=== PATIENT | female | born 1935 | race Caucasian/White ===

== ENCOUNTER 2019-09-17 11:45 | Inpatient (IN) ==
[2019-09-17] MEDS ORDERED: DUONEB (A & A) INH ONE (12:12)
[2019-09-17] MEDS ORDERED: SOLU-MEDROL IV ONE (12:12)
[2019-09-17] MEDS ORDERED: ATROVENT NEB INH ONE (12:12)
[2019-09-17] MEDS ORDERED: ROCEPHIN 1 GM in NS 50 ML IV ONE (12:12)
[2019-09-17 12:56] LABS: AGAP 9; ALBUMIN 3.8 g/dL (3.5-5.0); ALKALINE PHOSPHATASE 123 U/L (32-104); BUN 23 mg/dL (8-22); CALCIUM 9.2 mg/dL (8.8-10.2); CHLORIDE 96 mmol/L (98-107); COSMO 286; CREATININE 0.5 mg/dL (0.5-0.9); ESTIMATED GFR > 60; GLUCOSE 110 mg/dL (70-104); GOT 19 U/L (10-30); GPT 7 U/L (10-36); POTASSIUM 4.8 mmol/L (3.5-5.1); SODIUM 141 mmol/L (136-145); TCO2 35 mmol/L (25-35); TOTAL PROTEIN 7.4 g/dL (6.3-8.3)
--- NOTE | 2019-09-17 12:57 | Diag Imaging Result Doc PS360 ---
EXAM: CHEST-PORTABLE 09/17/2019 HISTORY: cough TECHNIQUE: Erect AP portable at 1244 COMMENT: There is ill-defined opacity over the right lower lobe inferiorly. This was not the case on 12/21/2017. There may be some chronic opacities in the retrocardiac left lower lobe and around the aortic arch. There is apical pleural thickening bilaterally. IMPRESSION: Right lower lobe bronchopneumonia. Pulmonary and pleural fibrosis. Electronically signed by Rafael Wellington 09/17/2019 12:54 PM
[2019-09-17 12:59] LABS: BASO# 0.01 X1000 (0.0-0.2); BASO% 0.2 % (0.0-0.8); EOS# 0.06 X1000 (0.0-0.7); EOS% 0.9 % (0.0-10.0); HEMATOCRIT 48.9 % (37.0-47.0); HEMOGLOBIN 14.4 g/dL (12.0-16.0); IMM GRAN# 0.01 X1000 (0.0-0.04); IMM GRAN% 0.2 % (0.0-0.5); LYMPH# 0.83 X1000 (1.2-3.4); LYMPH% 12.5 % (20.5-51.1); MCH 29.6 PG (27-31); MCHC 29.4 g/dL (33-37); MCV 100.6 FL (81-99); MONO# 0.69 X1000 (0.11-0.59); MONO% 10.4 % (1.7-9.3); MPV 10.1 FL (7.4-10.4); NEUT# 5.06 X1000 (1.4-6.5); NEUT% 75.8 % (42.2-75.2); PLT 185 X1000 (130-400); RBC 4.86 XMIL (4.2-5.4); RDW 14.2 % (11.5-14.5); WBC 6.66 X1000 (4.8-10.8)
[2019-09-17 13:51] LABS: INR 0.98; PROTIME 13.5 Seconds (11.0-16.0)
[2019-09-17] MEDS ORDERED: NORCO-10 PO PRN (14:37)
[2019-09-17] MEDS ORDERED: DUONEB (A & A) INH PRN (14:38)
[2019-09-17] MEDS: DOXYCYCLINE 100 MG in NS 250 ML IV SCH (16:45)
[2019-09-17] MEDS ORDERED: FLEXERIL PO SCH (17:00)
--- NOTE | 2019-09-17 18:11 | PROVIDER DOCUMENTATION ---
This chart was entered by Lisa Mathis Scribe, acting as scribe for Veronica Burnett MD. HPI-Respiratory General - General Chief Complaint: Shortness of Breath Stated Complaint: SOB - SENT FROM WOUND CENTER Time Seen by Provider: 09/17/19 11:47 Source: patient, family (daughter) Allergies/Adverse Reactions: Patient Allergies Allergy/AdvReac Type Severity Reaction Status Date / Time No Known Allergies Allergy Verified 09/17/19 12:10 Home Medications: Home Medication List Medication Instructions Recorded Confirmed Last Taken Type Carvedilol [Coreg] 6.25 mg PO DAILY 08/22/14 09/17/19 06/12/19 07:30 History Famotidine 20 mg PO QHS 08/22/14 09/17/19 06/11/19 19:00 History Morphine E.r. [Ms Contin] 120 mg PO Q12HR 08/22/14 09/17/19 06/12/19 07:30 History Albuterol Sulfate [Proair Hfa] 2 - 3 puff IH Q6H PRN PRN 02/11/16 09/17/19 06/12/19 11:00 History Morphine E.r. [Ms Contin] 15 mg PO QAM 08/21/17 09/17/19 06/12/19 07:30 History Hydrocodone/Acetaminophen 1 tab PO Q4-6H PRN PRN 12/20/17 09/17/19 06/11/19 05:00 History [Hydrocodone-Acetamin 10-325 mg] Letrozole [Femara] 1 tab PO QAM 12/20/17 09/17/19 06/12/19 07:30 History Albuterol 2.5MG/Ipratrop 0.5MG 3 ml INH DAILY 02/13/19 09/17/19 06/11/19 09:00 History [Duoneb (A & A)] Cyanocobalamin (Vitamin B-12) 2,500 mcg PO DAILY 06/05/19 09/17/19 06/12/19 07:30 History [Vitamin B12] Cyclobenzaprine [Flexeril] 5 mg PO HS 06/05/19 09/17/19 06/12/19 07:30 History - History of Present Illness-Resp Nature of Presenting Problem: 83 yowf presents to the ed from wound center with c/o worsening sob. pt is on home O2 @ 2.5LPM and has hx of COPD and lung CA that has mets to bone and breast. pt on home O2 @ 2.5LPM and has chronic sob but has became worse this morning Quality of Pain: reports: none Severity in ED: reports: moderate (sob) Onset/Duration: reports: other (chronic but worsened this am) Timing: reports: still present, intermittent Exposure: reports: unknown cause Cough Quality/Degree: reports: mild, dry cough Episode Frequency: chronic episodes Current Respiratory Medication Therapy: Initiated see nurses note Modifying Factors: worse with: exertion, lying down Associated Symptoms: reports: cough, shortness of breath, wheezing. denies: chest pain/soreness, headache Similar Symptoms Previously?: Yes (COPD) Recently seen or treated by another doctor?: Yes (was seen at wound care this am ) Review of Systems - Adult - REVIEW OF SYSTEMS - ADULT Constitutional: reports: see HPI. denies: chills, fever (97.4) Eyes: reports: no symptoms reported Ears, Nose, Mouth & Throat: reports: no symptoms reported Cardiovascular: reports: see HPI, orthopnea. denies: chest pain, palpitations Respiratory: reports: see HPI, chronic cough, dyspnea on exertion, shortness of breath, wheezing Gastrointestinal: denies: abdominal pain, diarrhea, nausea, vomiting Genitourinary: reports: no symptoms reported Musculoskeletal: denies: back pain, neck pain Integumentary: reports: no symptoms reported Neurological: denies: dizziness/vertigo, headache/migraines Psychiatric: reports: no symptoms reported Endocrine: reports: no symptoms reported Hematologic/Lymphatic: reports: no symptoms reported Allergic/Immunologic: reports: no symptoms reported All Other Systems: Reviewed and Negative Past History - Adult - PAST MEDICAL HISTORY-ADULT Review of Records: reports: Old Records Reviewed, Nursing Assessment Review, Medications Reviewed, Social history reviewed & non-contributory. Major Childhood Illnesses: reports: denies history Cardiovascular: reports: HTN Respiratory: reports: asthma, cancer Gastrointestinal: reports: GERD Obstetrical/Gynecological: reports: denies history Genitourinary: reports: denies history Musculoskeletal: reports: cancer Neurological: reports: denies history Psychiatric: reports: denies history Endocrine/Immune: reports: Diabetes, immunosuppression Diabetes Type: Type 2 Other Conditions: reports: other cancer (breast) - PRIOR SURGERIES/PROCEDURES Surgical/Procedure History: reports: cholecystectomy, hysterectomy, orthopedic (extremity), joint replacement, breast, other (mastectomy) - IMMUNIZATION STATUS Childhood Immunizations: See Nurse Assessment Flu Vaccine: See Nurse Assessment - FAMILY HISTORY Family History: reviewed, not pertinent - SOCIAL HISTORY Smoking: cigarettes, less than 1 pack/day Provider spent 3-5 mins advising pt. on dangers of tobacco.: Discussed manners t o quit use, and f/u contacts for add'l counseling. Substance Use: denies Alcohol Use Frequency: never Living Situation: family Physical Exam-General - PHYSICAL EXAM-ADULT Initial Vital Signs Reviewed: Yes - CONSTITUTIONAL General Appearance: alert, mild distress, obese - EYES Eyes: PERRL/EOMI, pink conjunctivae - HEAD, EARS, NOSE, MOUTH & THROAT HENMT: moist mucous membranes - NECK Neck: non-tender, normal inspection - RESPIRATORY Respiratory: decreased breath sounds, crackles (left greater then right), wheezing (bilateral), prolonged expiration, other (mastectomy/low O2 sat 85% on 2.5LPM via NC) - CARDIOVASCULAR Cardiovascular: normal peripheral pulses, regular rate, rhythm - CHEST (BREASTS) Chest/Breast: deferred - GASTROINTESTINAL (ABDOMEN) Abdominal Exam: non tender, soft - GENITOURINARY Female Genitalia/Pelvic Exam: deferred Rectal Exam: deferred Hemoccult Exam: deferred - MUSCULOSKELETAL Back Exam: no CVA tenderness, no vertebral tenderness Extremity: normal range of motion, normal capillary refill, other (wound noted with bandage covering on RLE lateral) - SKIN Integumentary: normal color, normal turgor, warm/dry - NEUROLOGIC Neurologic: grossly normal - PSYCHIATRIC Psych/Mental Status: normal mood/affect, normal thought content, normal thought process, oriented x 3 Progress - PLAN OF CARE/RESULTS Progress/Plan/Lab Results: Vital Signs - 8 hr 09/17/19 11:47 09/17/19 12:25 09/17/19 13:01 Temperature 97.4 F L Pulse Rate 80 84 85 Respiratory Rate 20 20 24 Blood Pressure 160/97 O2 Sat by Pulse Oximetry 81 L 97 96 Laboratory Results - last 24 hr 09/17/19 09/17/19 09/17/19 12:15 12:20 12:20 WBC RBC Hgb Hct MCV MCH MCHC RDW Std Deviation Plt Count MPV Immature Gran % (Auto) Neut % (Auto) Lymph % (Auto) [place] % (Auto) Eos % (Auto) Baso % (Auto) Immature Gran # (Auto) Neut # (Auto) Lymph # (Auto) [place] # (Auto) Eos # (Auto) Baso # (Auto) PT 13.5 INR 0.98 PTT (Actin FS) 32.0 Sodium Potassium Chloride Carbon Dioxide Anion Gap BUN Creatinine Estimated GFR/1.73 m2 BUN/Creatinine Ratio Glucose Calculated Osmolality Calcium Total Bilirubin AST ALT Alkaline Phosphatase Creatine Kinase 46 Troponin T Toj-S-Zljfljbueed Pept Total Protein Albumin Globulin Albumin/Globulin Ratio Plasma Lactate 1.3 09/17/19 09/17/19 09/17/19 12:20 12:29 12:29 WBC 6.66 RBC 4.86 Hgb 14.4 Hct 48.9 H MCV 100.6 H MCH 29.6 MCHC 29.4 L RDW Std Deviation 14.2 Plt Count 185 MPV 10.1 Immature Gran % (Auto) 0.2 Neut % (Auto) 75.8 H Lymph % (Auto) 12.5 L [place] % (Auto) 10.4 H Eos % (Auto) 0.9 Baso % (Auto) 0.2 Immature Gran # (Auto) 0.01 Neut # (Auto) 5.06 Lymph # (Auto) 0.83 L [place] # (Auto) 0.69 H Eos # (Auto) 0.06 Baso # (Auto) 0.01 PT INR PTT (Actin FS) Sodium 141 Potassium 4.8 Chloride 96 L Carbon Dioxide 35 Anion Gap 9 BUN 23 H Creatinine 0.5 Estimated GFR/1.73 m2 > 60 BUN/Creatinine Ratio 46 Glucose 110 H Calculated Osmolality 286 Calcium 9.2 Total Bilirubin 0.40 AST 19 ALT 7 L Alkaline Phosphatase 123 H Creatine Kinase Troponin T < 0.010 Ujv-I-Rzocoyduhgu Pept Total Protein 7.4 Albumin 3.8 Globulin 4.0 Albumin/Globulin Ratio 1.0 Plasma Lactate 09/17/19 12:29 WBC RBC Hgb Hct MCV MCH MCHC RDW Std Deviation Plt Count MPV Immature Gran % (Auto) Neut % (Auto) Lymph % (Auto) [place] % (Auto) Eos % (Auto) Baso % (Auto) Immature Gran # (Auto) Neut # (Auto) Lymph # (Auto) [place] # (Auto) Eos # (Auto) Baso # (Auto) PT INR PTT (Actin FS) Sodium Potassium Chloride Carbon Dioxide Anion Gap BUN Creatinine Estimated GFR/1.73 m2 BUN/Creatinine Ratio Glucose Calculated Osmolality Calcium Total Bilirubin AST ALT Alkaline Phosphatase Creatine Kinase Troponin T Yww-K-Lymqauqrooq Pept 8168 H Total Protein Albumin Globulin Albumin/Globulin Ratio Plasma Lactate Orders Category Date Time Status Admit - [facility] Routine AdmDCTranf 09/17/19 14:36 Active Activity - Up with Assistance ORDERED Care 09/17/19 14:36 Active Apply Mechanical Device [QM] ORDERED Care 09/17/19 14:36 Active Cardiac Monitoring DIRECTED Care 09/17/19 13:24 Completed DVT/PE Risk Assess/Protocol [QM] ORDERED Care 09/17/19 14:36 Active Elevate Head of Bed DIRECTED Care 09/17/19 14:36 Active Encourage Fluids DIRECTED Care 09/17/19 14:36 Active Intake and Output-Strict Q 8-HR ASSESS Care 09/17/19 14:36 Active Notify MD of + Sepsis Screen NOW Care 09/17/19 13:24 Completed Notify Physician As Ordered Care 09/17/19 13:24 Active Nursing- Assist w/ IS as order ORDERED Care 09/17/19 14:37 Active Saline Loc NOW Care 09/17/19 12:12 Completed Turn, Cough and Deep Breathe Q2HR Care 09/17/19 14:36 Active Vital Signs Order Q 8-HR ASSESS Care 09/17/19 14:36 Active Z-Document. for Tele Applied ORDERED Care 09/17/19 14:37 Active Regular Diet Diet 09/17/19 14:37 Active CHEST-PORTABLE [RAD] Stat Exams 09/17/19 12:12 Completed BLOOD CULTURE [BLDCUL] Stat Lab 09/17/19 12:15 Results CBC WITH DIFF [HEME] Stat Lab 09/17/19 12:29 Completed CK PROFILE [SP CHEM] Stat Lab 09/17/19 12:20 Completed COMPREHENSIVE METABOLIC PANEL [CHEM] Stat Lab 09/17/19 12:29 Completed LACTATE, PLASMA [CHEM] Lab 09/17/19 12:15 Completed LACTATE, PLASMA [CHEM] Lab 09/17/19 16:40 Completed LACTATE, PLASMA [CHEM] Lab 09/17/19 18:15 Ordered PRO B-NATRIURETIC PEPTIDE Stat Lab 09/17/19 12:29 Completed PROTIME WITH INR [COAG] Stat Lab 09/17/19 12:20 Completed PTT [COAG] Stat Lab 09/17/19 12:20 Completed SPUTUM CULTURE WITH GRAM STAIN [RM] Urgent Lab 09/17/19 12:13 Uncollected TROPONIN T Stat Lab 09/17/19 12:20 Completed Albuterol 2.5MG/Ipratrop 0.5MG [Duoneb (A & A)] Med 09/17/19 12:12 Discon tinued 3 ml INH NOW ONE Albuterol 2.5MG/Ipratrop 0.5MG [Duoneb (A & A)] Med 09/17/19 14:38 Active 3 ml INH Q2H PRN PRN Carvedilol [Coreg] Med 09/18/19 09:00 Active 6.25 mg PO DAILY CefTRIAXONE [Rocephin] 1 gm Med 09/17/19 12:12 Discontinued 0.9% Sodium Chloride Inj [Ns] 50 ml IV NOW CefTRIAXONE [Rocephin] 1 gm Med 09/18/19 12:00 Active 0.9% Sodium Chloride Inj [Ns] 50 ml IV Q24H Cyanocobalamin S.l. [Vitamin B-12] Med 09/18/19 09:00 Active 2,500 microgm PO DAILY Cyclobenzaprine [Flexeril] Med 09/17/19 17:00 Discontinued 5 mg PO TID Doxycycline 100 mg Med 09/17/19 14:45 Active 0.9% Sodium Chloride Inj [Ns] 250 ml IV Q12H Famotidine [Pepcid] Med 09/17/19 21:00 Active 20 mg PO QHS Hydrocodone/APAP 10 mg/325 mg [[place]-10] Med 09/17/19 14:37 Active 1 each PO Q4-6H PRN PRN Ipratropium Calvin Neb [Atrovent Neb] Med 09/17/19 12:12 Discontinued 0.5 mg INH NOW ONE Methylprednisolone Sod Succ [Solu-Medrol] Med 09/17/19 12:12 Discontinued 125 mg IV NOW ONE Morphine E.r. [Ms Contin] Med 09/17/19 21:00 Active 120 mg PO Q12HR Morphine E.r. [Ms Contin] Med 09/18/19 09:00 Active 15 mg PO QAM Aerosol Treatments Routine Oth 09/17/19 12:13 Completed Aerosol Treatments Routine Oth 09/17/19 14:38 Completed Aerosol Treatments Stat Oth 09/17/19 12:13 Completed Aerosol Treatments Stat Oth 09/17/19 14:38 Completed Incentive Spirometer Routine Oth 09/17/19 14:36 Completed Oxygen Device Routine Oth 09/17/19 14:36 Completed Oxygen Device Stat Ot 09/17/19 13:24 Active Pulse Oximetry Routine Oth 09/17/19 14:36 Active Pulse Oximetry Stat Ot 09/17/19 12:12 Active Telemetry [OM.EQ] Routine Oth 09/17/19 14:36 Active Transfer/Admit Order [TRANSFER] Routine Transfer 09/17/19 14:39 Completed Result Diagrams: 09/17/19 12:29 09/17/19 12:29 - REASSESSMENT Reassessment #1 Time Reassessed: 12:22 Status: unchanged (dr burnett at bedside speaking with pt and daughter about POC) Reassessment #2 Time Reassessed: 13:13 Status: unchanged (dr brewster at bedside) - XRAY 1 XRAY: Bilateral XRAY Study: Chest Impression: See EMR Report (EXAM: CHEST-PORTABLE 09/17/2019 HISTORY: cough TECHNIQUE: Erect AP portable at 1244 COMMENT: There is ill-defined opacity over the right lower lobe inferiorly. This was not the case on 12/21/2017. There may be some chronic opacities in the retrocardiac left lower lobe and around the aortic arch. There is apical pleural thickening bilaterally. IMPRESSION: Right lower lobe bronchopneumonia. Pulmonary and pleural fibrosis. Electronically signed by Rafael Wellington 09/17/2019 12:54 PM 09/17/19 1254 Interpreting Physician: Rafael Wellington MD Dictated Date/Time: 09/17/19 1253 cc: Veronica Burnett MD; Wilfredo Alvarez MD) - CONSULTS/PCP/HOSPITALIST Notification #1 *Consult/PCP/Hospitalist*: hospitalist dr brewster Time Discussed: 13:14 (dr brewster is at bedside) Reason/Comments: PNA Consult Disposition: Admit Departure - Departure Date of Disposition Decision: 09/17/19 Time of Disposition Decision: 13:13 DIAGNOSIS: COPD exacerbation, Tobacco use disorder PNA (pneumonia) Qualifiers: Pneumonia type: due to unspecified organism Laterality: unspecified laterality Lung location: unspecified part of lung Qualified Code(s): J18.9 - Pneumonia, unspecified organism Disposition: ADMITTED INPATIENT 09 Certified Medical Emergency: Emergent Condition: Good - Critical Care Note This patient required my direct & personal management of CC.: Yes Total Time (mins): 38 Critical Care Statement: This patient required my direct personal management to treat or rule out processes, the absence of which, could potentiallly result in sudden, clinically significant life or limb threatening deterioration. Attestation - Physician/ ANSELMO Attestation Patient care was provided by Advanced Practice Provider:: No The physician spent face to face time with patient:: Yes Advanced Practice Provider documentation review:: Supervising physician onsite and consulted in the evaluation and care of this patient. The physician did have a face to face encounter with the patient. This chart was documented by the indicated scribe, (Lias Mathis Scribe) and accurately reflects the services I performed and decisions made by me, Veronica Burnett MD, as attested by the provider's signature.
[2019-09-17] MEDS: DUONEB (A & A) INH SCH ×2 (19:46→23:05)
[2019-09-17] MEDS: FLEXERIL PO SCH (20:31)
[2019-09-17] MEDS: SOLU-MEDROL IV SCH (20:31)
[2019-09-17] MEDS: MS CONTIN PO SCH (20:32)
[2019-09-17] MEDS: PEPCID PO SCH (20:32)
--- NOTE | 2019-09-17 23:27 | HISTORY AND PHYSICAL ---
PRIMARY CARE PHYSICIAN: Dr. Wilfredo Alvarez. CHIEF COMPLAINT: Shortness of breath, low O2 saturations. HISTORY OF PRESENT ILLNESS: This is an 83-year-old female with a history of breast cancer wit bony metastases, lung cancer who presents to the emergency room from the [facility] complaining of shortness of breath that has been present for about 2 weeks. The patient states that about 2 or 3 weeks ago she was diagnosed with an upper respiratory infection, evaluated by her primary care physician and given antibiotics. They felt that she was getting better until the last 2 to 3 days. The daughter states that the patient began having shortness of breath at rest, having 2 to 3 pillow orthopnea. She uses home O2 as needed, but over this last 2 to 3 days, she has used it continuously at 2-1/2 L, and this morning her shortness of breath was not relieved with resting and oxygen. She denied any fevers or chills, any chest pain or palpitations. PAST MEDICAL HISTORY: 1. Breast cancer with bony metastases. 2. Lung cancer, left upper lobe, status post radiation 2 years ago. 3. Chronic pain on chronic narcotics. 4. COPD. 5. Hypertension. 6. Peripheral artery disease. 7. Chronic tobacco use and abuse. PAST SURGICAL HISTORY: Left total knee arthroplasty, right superficial femoral artery arthrectomy and angioplasty, laparoscopic cholecystectomy, removal of chemotherapy port, hysterectomy, right great toe partial amputation, bilateral mastectomy, right femur fracture repair, redo surgery for right femur fracture and left lung biopsy. FAMILY HISTORY: Mother from an ischemic stroke. Father from an MD. ALLERGIES: No known drug allergies. HOME MEDICATIONS: A list will be obtained by the nursing staff, and once verified, we will review and restart as is appropriate. REVIEW OF SYSTEMS: Discussed with the patient with pertinent positives stated in the HPI. She denied any syncope, dizziness, chest pain, palpitations, any fevers, chills, nausea, vomiting, diarrhea, constipation, black or bloody vomitus or stools, any hematuria, dysuria, frequency, urgency. PHYSICAL EXAMINATION: GENERAL: This is an 83-year-old female who is lying on the stretcher in the emergency room in no distress. VITAL SIGNS: Blood pressure is 150/90 with a heart rate of 84, respirations 18, temperature is 98.2 degrees oral with O2 saturations ranging from 93% to 96% on 2.5 L nasal cannula. Of note, she was 81% on room air on arrival to the emergency room. HEENT: Head is normocephalic, atraumatic. Mucous membranes are moist. NECK: Supple with trachea midline. CARDIOVASCULAR: Regular rate and rhythm. S1 and S2 are appreciated. She has no murmur. She has no lower extremity edema. Calves are nontender bilateral with peripheral pulses palpable x4 extremities. PULMONARY: She has expiratory wheezes scattered throughout. Chest rises and falls symmetric with respiration. GASTROINTESTINAL: Abdomen is soft, nontender, nondistended with bowel sounds in all 4 quadrants. NEUROLOGIC: She is alert and oriented x3. SKIN: Warm and dry. She has a wound to her left leg and right foot that are being followed by Dr. Manley in the Wound Center with dressings intact. LABORATORY DATA: WBC is 6 with hemoglobin 14.4, hematocrit 48.9, and platelets 185,000. INR 0.98. Sodium 141, potassium 4.8, BUN 23, creatinine 0.5 with a glucose of 110. Blood cultures are pending. IMAGING: Chest x-ray reveals right lower lobe bronchopneumonia with pulmonary and pleural fibrosis. ASSESSMENT: 1. Right lower lobe bronchopneumonia. 2. Chronic obstructive pulmonary disease with acute exacerbation. 3. Chronic pain on chronic morphine. 4. Hypertension. 5. History of breast cancer with bony metastases. She is followed by Dr. Corado for this. She is currently receiving treatments every 3 months. 6. History of left lung cancer status post radiation, aware. 7. Peripheral artery disease with ulcers noted right leg and right foot, followed by Dr. Manley in the Wound Center. 8. Gastroesophageal reflux disease. PLAN: The patient will be admitted to the medical-surgical floor. She will be placed on telemetry. We will continue with supplemental oxygen, incentive spirometer every 4 hours, attempt to get a sputum specimen, have DuoNebs q.4 hours with q.2 hours p.r.n. with steroids to taper, have her up in the chair with meals and p.r.n. We will continue her MS Contin along with her hydrocodone. Blood cultures have been obtained. Doxycycline and Rocephin for antibiotic coverage. Check a CBC and CMP in the morning. For DVT prophylaxis, we will use Lovenox. Further treatments pending hospital course. Plan was discussed with Dr. Hills. Dictated by JAS Nelson for Cuco Hills MD cc: JAS Nelson MD
--- NOTE | 2019-09-18 01:23 | HISTORY AND PHYSICAL ---
ADDENDUM: Patient seen and examined by myself. Full note dictated and discussed with nurse practitioner. Patient presented to the hospital with increased work of breathing, shortness of breath. She, apparently, was at the wound center when her symptoms worsened; therefore, she came to the ER. She is typically on oxygen at home, has a known history of COPD and lung cancer. We are going to admit her to the hospital, follow her blood pressures, place on antibiotics, treat her for COPD and pneumonia. Please see full note. cc: Cuco Hills MD
[2019-09-18] MEDS: DUONEB (A & A) INH SCH ×5 (04:13→20:05)
[2019-09-18 05:22] LABS: AGAP 9; ALBUMIN 3.3 g/dL (3.5-5.0); ALKALINE PHOSPHATASE 102 U/L (32-104); BUN 22 mg/dL (8-22); CALCIUM 8.5 mg/dL (8.8-10.2); CHLORIDE 101 mmol/L (98-107); COSMO 288; CREATININE 0.4 mg/dL (0.5-0.9); ESTIMATED GFR > 60; GLUCOSE 156 mg/dL (70-104); GOT 15 U/L (10-30); GPT 5 U/L (10-36); POTASSIUM 4.4 mmol/L (3.5-5.1); SODIUM 141 mmol/L (136-145); TCO2 32 mmol/L (25-35); TOTAL PROTEIN 6.3 g/dL (6.3-8.3)
[2019-09-18 05:35] LABS: EOS# 0.01 X1000 (0.0-0.7); EOS% 0.2 % (0.0-10.0); HEMATOCRIT 46.2 % (37.0-47.0); HEMOGLOBIN 13.5 g/dL (12.0-16.0); IMM GRAN# 0.01 X1000 (0.0-0.04); IMM GRAN% 0.2 % (0.0-0.5); LYMPH# 0.32 X1000 (1.2-3.4); LYMPH% 7.7 % (20.5-51.1); MCH 28.8 PG (27-31); MCHC 29.2 g/dL (33-37); MCV 98.7 FL (81-99); MONO# 0.07 X1000 (0.11-0.59); MONO% 1.7 % (1.7-9.3); MPV 9.5 FL (7.4-10.4); NEUT# 3.77 X1000 (1.4-6.5); NEUT% 90.2 % (42.2-75.2); PLT 177 X1000 (130-400); RBC 4.68 XMIL (4.2-5.4); RDW 13.8 % (11.5-14.5); WBC 4.18 X1000 (4.8-10.8)
[2019-09-18] MEDS: SOLU-MEDROL IV SCH ×3 (05:47→23:25)
[2019-09-18 06:30] LABS: LYMPHS 8 % (21-51); MONO 2 % (1-9); SEGS 90 % (42-75)
[2019-09-18] MEDS: DOXYCYCLINE 100 MG in NS 250 ML IV SCH ×2 (08:32→20:04)
[2019-09-18] MEDS: LOVENOX SUBQ SCH (08:32)
[2019-09-18] MEDS: MS CONTIN PO SCH ×3 (08:32→20:05)
[2019-09-18] MEDS: COREG PO SCH (08:33)
[2019-09-18] MEDS: VITAMIN B-12 PO SCH (08:33)
[2019-09-18] MEDS ORDERED: ROCEPHIN 1 GM in NS 50 ML IV SCH (12:00)
--- NOTE | 2019-09-18 16:48 | PROGRESS NOTE ---
DATE: 09/18/2019 SUBJECTIVE: Patient notes that she is feeling a lot better. A lot less cough and congestion. No wheezing. No shortness of breath. States she also has not been out of bed. OBJECTIVE: Temperature 97.9, pulse 86 respiratory 18, BP 149/64. General: Patient is awake, alert. She is in no distress, lying flatly in bed. HEENT normocephalic. Neck supple. CV regular rate. Chest decreased but equal. No current wheezing. Abdomen soft, nondistended. Extremities. Moves all extremities. ASSESSMENT: 1. Right lower lobe pneumonia. 2. Chronic obstructive pulmonary disease with exacerbation. 3. Chronic pain on chronic pain medication. 4. History of breast cancer with bony metastases, currently receiving treatment. PLAN: We will continue patient in the hospital, decrease her Solu-Medrol. Continue antibiotics, breathing treatments, oxygen and will follow. cc: Cuco Hills MD
[2019-09-18] MEDS ORDERED: CARDIZEM IV ONE (19:17)
[2019-09-18] MEDS: FLEXERIL PO SCH (20:04)
[2019-09-18] MEDS: PEPCID PO SCH (20:05)
--- NOTE | 2019-09-18 20:33 | EKG Report ---
Test Performed on : 09/18/2019 7:26:35 PM Test Reason : A FIB Blood Pressure : / mmHG Vent. Rate : 100 BPM Atrial Rate : 100 BPM P-R Int : 148 ms QRS Dur : 144 ms QT Int : 386 ms P-R-T Axes : 075 -70 078 degrees QTc Int : 497 ms Normal sinus rhythm. Possible Left atrial enlargement Left axis deviation Right bundle branch block Left ventricular hypertrophy with repolarization abnormality Cannot rule out Septal infarct (cited on or before 20-DEC-2017) Abnormal ECG When compared with ECG of 13-FEB-2019 12:39, T wave inversion now evident in Anterior leads Confirmed by Rocky Rodriguez MD ([id number]) on 09/21/2019 7:21:27 AM
[2019-09-19] MEDS: DUONEB (A & A) INH SCH ×3 (00:01→07:57)
[2019-09-19] MEDS: SOLU-MEDROL IV SCH (06:30)
--- NOTE | 2019-09-19 07:57 | DISCHARGE SUMMARY ---
ADMISSION DATE: 09/17/2019 DISCHARGE DATE: 09/19/2019 DISCHARGE DIAGNOSES: 1. Hypertension. 2. Right lower lobe pneumonia, improved. 3. Chronic obstructive pulmonary disease with exacerbation. 4. Chronic pain on chronic opiates. 5. History of breast cancer with bony metastases. 6. History of lung cancer status post radiation. 7. Peripheral vascular disease. 8. Reflux. DISCHARGE MEDICATIONS: Coreg 6.25 daily, vitamin B 12, Flexeril 5 at bedtime, doxycycline 100 b.i.d. for 5 days, Pepcid, [place] per her home dosing, MS Contin 120 q. 12 hours per her home dosing, as well as 15 q.a.m. She will be discharged with DuoNebs. She can restart her Femara. We will discharge her with Medrol Dosepak. BRIEF HOSPITAL COURSE: The patient was admitted to the hospital with increased cough and congestion, increased shortness of breath. She was placed on antibiotics, which she tolerated very well. She was placed on steroids and breathing treatments. Thankfully over the hospital stay, her symptoms improved. She was able to ambulate without any difficulty. She has tolerated oral antibiotics, as well as an oral diet. DISPOSITION: Patient will be discharged home. She will continue antibiotics for 5 more days, as well as a Medrol Dosepak. She will follow up outpatient with treatment facility of choice. Discussed with her the importance of avoiding smoking, as well as anyone else's smoking. TIME SPENT: Greater than 30 minutes was spent in total care and discharge instructions. cc: Cuco Hills MD
[2019-09-19 08:21] VITALS: BP 149/81
[2019-09-19] MEDS ORDERED: DOXYCYCLINE PO SCH (09:00)
[2019-09-19] MEDS: MS CONTIN PO SCH ×2 (09:59→10:00)
[2019-09-19] MEDS: VITAMIN B-12 PO SCH (09:59)
[2019-09-19] MEDS: LOVENOX SUBQ SCH (09:59)
[2019-09-19] MEDS: COREG PO SCH (10:00)
== END 2019-09-19 11:04 | disposition home or self-care (01) | DRG 190 ==
LOC: P.ED 11:45 → P.MEDSURG 15:00
PROVIDERS: ATTEND Family Medicine